=== PATIENT | female | born 1960 | race Caucasian/White ===

== ENCOUNTER → 2020-08-16 07:53 | Outpatient (CLI) | payer OTHER, SELFPAY ==
--- NOTE | ~2020-08-16 | XR_ITS ---
EXAMINATION: XR knee LT min 4V DATE: 08/16/2020 08:10 INDICATION: Medial left knee pain. Injury. TECHNIQUE: 4 views of left knee were obtained. COMPARISON: None. FINDINGS: Bone alignment is normal. No fracture. There is mild osteoarthritis of patellofemoral tasia rtment characterized by a tiny marginal osteophyte. No knee joint effusion. IMPRESSION: 1. Mild left knee osteoarthritis. Reviewed, dictated and finalized at location A. ENGINE OPERATOR
== END ==
PROVIDERS: PCP Family Medicine; Visit Provider Physician Assistant Medical
DX: M25.562 Pain in left knee (principal)
CPT/HCPCS: 73564

== ENCOUNTER → 2021-07-01 00:46 | Outpatient (CLI) | payer OTHER, SELFPAY ==
[2021-07-01 19:34] LABS: SARS-CoV-2 RNA PCR Negative
== END ==
PROVIDERS: PCP Family Medicine; Visit Provider Family Medicine
DX: R50.9 Fever, unspecified (principal); R53.83 Other fatigue; R51.9 Headache, unspecified; J02.9 Acute pharyngitis, unspecified; Z20.822 Contact with and (suspected) exposure to COVID-19
CPT/HCPCS: C9803; U0003; U0005

== ENCOUNTER 2022-05-16 16:03 | Outpatient (CLI) | payer OTHER, SELFPAY | END 2022-05-16 16:04 | disposition home or self-care (01) | LOC: ANHGOSHLAB 16:04 | PROVIDERS: PCP Family Medicine; Visit Provider Family Medicine | DX: E03.9 Hypothyroidism, unspecified (principal) | CPT/HCPCS: 36415; 84443 ==